=== PATIENT | male | born 1955 | race Caucasian/White ===

== ENCOUNTER 2017-09-14 17:30 | Emergency (ER) | payer BC ==
[~2017-09-14 17:30] MED LIST: Lidocaine 2% 20 ML MDV INFILT ONE
[2017-09-14] MEDS ORDERED: Diphtheria,Pertussis(Acell),Tetanus Vaccine 0.5 ML SDV IM ONE (17:53)
[2017-09-14] MEDS ORDERED: Amoxicillin/Clavulanate K 875-125 MG Tab PO ONE (17:53)
[2017-09-14] MEDS ORDERED: Lidocaine 1% 20 ML MDV INJECT ONE (17:54)
--- NOTE | 2017-09-14 18:21 | EDM.PDOC ---
ED HPI GENERAL MEDICAL PROBLEM - General Chief Complaint: Bite:Animal, Insect Stated Complaint: DOG BIT ON L ARM Time Seen by Provider: 09/14/17 17:55 Source of Information: Reports: Patient History Limitations: Reports: No Limitations - History of Present Illness INITIAL COMMENTS - FREE TEXT/NARRATIVE: 61 yo male here after a dog bite. Tetanus last 5 yrs ago. 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 (see below) - Related Data Allergies Allergy/AdvReac Type Severity Reaction Status Date / Time No Known Allergies Allergy Verified 11/16/14 16:23 Home Meds: Home Meds Amoxicillin/Potassium Clav [Augmentin 875-125 Tablet] 1 each PO Q12H #5 tablet 09/14/17 [Rx] Social & Family History - Tobacco Use Smoking Status *Q: Former Smoker Years of Tobacco use: 25 Used Tobacco, but Quit: Yes Month Tobacco Last Used: Dec ED ROS GENERAL - Review of Systems Review Of Systems: See Below Respiratory: Reports: No Symptoms Musculoskeletal: Reports: No Symptoms Skin: Reports: Wound Neurological: Reports: No Symptoms ED EXAM, SKIN/RASH Exam: See Below Exam Limited By: No Limitations General Appearance: Alert, WD/WN, No Apparent Distress Neurological: Alert, Oriented, CN II-XII Intact, Normal Cognition, No Motor/ Sensory Deficits Psychiatric: Normal Affect, Normal Mood Skin: Warm, Dry, Normal Color, No Rash, Wound/Incision Location, Skin: Upper Extremity, Right Characteristics: Linear Associated features: Tenderness Lymphatic: No Adenopathy ED SKIN PROCEDURES - Laceration/Wound Repair Right Middle Anterior Arm Lac/Wound length In cm: 2.4 Appearance: Subcutaneous Distal NVT: Neuro & Vascular Intact Anesthetic Type: Local Local Anesthesia - Lidocaine (Xylocaine): 2% Plain Local Anesthetic Volume: 5cc Skin Prep: Saline Exploration/Debridement/Repair: No Foreign Material Found Closed with: Sutures Suture Size: other (5-0) # of Sutures: 4 Suture Type: Nylon, Simple, Mattress Drain Placement: No Sterile Dressing Applied: Nurse Tetanus Status Addressed: Yes Complications: No Course - Orders/Labs/Meds Orders: Active Orders 24 hr Category Date Time Status Vaccines to be Administered [RC] PER UNIT ROUTINE Care 09/14/17 17:53 Active Meds: Medications Discontinued Medications Generic Name Dose Route Start Last Admin Trade Name Lela PRN Reason Stop Dose Admin Amoxicillin/Clavulanate Potassium 1 tab 09/14/17 17:53 Augmentin 875 Mg/125 Mg PO 09/14/17 17:54 ONETIME ONE Diphtheria/Tetanus/Acell Pertussis 0.5 ml 09/14/17 17:53 Adacel IM 09/14/17 17:54 .ONCE ONE Lidocaine HCl 20 ml 09/14/17 17:54 Xylocaine 1% INJECT 09/14/17 17:55 ONETIME ONE Departure - Departure Time of Disposition: 18:25 Disposition: Home, Self-Care 01 Condition: Good Clinical Impression: Dog bite of forearm Qualifiers: Encounter type: initial encounter Laterality: right Qualified Code(s): S51.851A - Open bite of right forearm, initial encounter; W54.0XXA - Bitten by dog, initial encounter; W54.0XXA - Bitten by dog, initial encounter - Discharge Information Prescriptions: Amoxicillin/Potassium Clav [Augmentin 875-125 Tablet] 1 each PO Q12H #5 tablet Referrals: PCP,None [Primary Care Provider] - Forms: ED Department Discharge Additional Instructions: Take Augmentin every 12 hrs with food until gone. Clean your wound 3x daily with soap and water. Dry. Apply Bacitracin ointment and a new dressing. Wound check in the clinic in 2 days and stitches out in the clinic in 9 days, call for an appt. Take acetaminophen as needed for pain relief. - My Orders Last 24 Hours: My Active Orders 09/14/17 17:53 Vaccines to be Administered [RC] PER UNIT ROUTINE - Assessment/Plan Last 24 Hours: My Active Orders 09/14/17 17:53 Vaccines to be Administered [RC] PER UNIT ROUTINE
== END 2017-09-14 18:35 | disposition home or self-care (01) ==
LOC: FB.ED 17:30
DX: S51.851A Open bite of right forearm, initial encounter (principal); W54.0XXA Bitten by dog, initial encounter; Z23 Encounter for immunization; Z87.891 Personal history of nicotine dependence
CPT/HCPCS: 12001; 90471; 90715; 99283; A9270

== ENCOUNTER 2022-11-02 11:13 | Emergency (ER) | payer MEDICARE ==
[2022-11-02 12:08] LABS: ESTIMATED GFR 82 mL/min (>60)
== END 2022-11-02 13:00 | disposition home or self-care (01) ==
LOC: FB.ED 11:13
DX: R00.1 Bradycardia, unspecified (principal); E11.9 Type 2 diabetes mellitus without complications; E66.9 Obesity, unspecified; Z68.30 Body mass index [BMI] 30.0-30.9, adult; Z79.899 Other long term (current) drug therapy
CPT/HCPCS: 36415; 71045; 80053; 83880; 84484; 85025; 93005; 99285

== ENCOUNTER 2025-03-09 06:03 | Day surgery (SDC) | payer MEDICARE, OTHER ==
[2025-03-09] MEDS ORDERED: Lidocaine 2% 100 MG/5 ML Syringe IVPUSH ONE (06:04)
[2025-03-09] MEDS ORDERED: Propofol 200 MG/20 ML SDV IV ONE (06:04)
[2025-03-09] MEDS ORDERED: Midazolam 1 MG/ML 2 ML SDV IV ONE (06:04)
[2025-03-09] MEDS ORDERED: Ketamine 500 mg/10 ML MDV IV ONE (06:04)
[2025-03-09] MEDS ORDERED: Phenylephrine 0.5% Nasal Spray 15 ML Bot NAS ONE (06:04)
[2025-03-09] MEDS ORDERED: Glycopyrrolate 0.2 MG/ML 5 ML MDV IV ONE (06:04)
[2025-03-09] MEDS ORDERED: Sodium Chloride 0.9% 10 ML Syringe FLUSH PRN (06:15)
[2025-03-09] MEDS: Lactated Ringers 1,000 ML IV SCH (06:43)
[2025-03-09] MEDS: Simethicone Drops 40 MG/0.6 ML 30 ML Bottle ONE (07:40)
== END 2025-03-09 09:30 | disposition home or self-care (01) ==
LOC: FB.SDS 06:03
PROVIDERS: ATTEND Surgery
DX: Z12.11 Encounter for screening for malignant neoplasm of colon (principal); K57.30 Diverticulosis of large intestine without perforation or abscess without bleeding; Z80.0 Family history of malignant neoplasm of digestive organs; I10 Essential (primary) hypertension; E66.01 Morbid (severe) obesity due to excess calories; Z68.42 Body mass index [BMI] 45.0-49.9, adult; Z87.891 Personal history of nicotine dependence; Z79.899 Other long term (current) drug therapy; Z88.0 Allergy status to penicillin
CPT/HCPCS: 00811; 88305; 99100; A9270-GY; J1596; J2250; J2704; J3490; J7120